=== PATIENT | female | born 1945 | race Caucasian/White ===

== ENCOUNTER 2016-10-10 03:02 | Emergency (ER) | payer BC ==
[~2016-10-10] VITALS: Ht 160 cm; Wt 73.6 kg
[2016-10-10] MEDS ORDERED: 00186-0372-20 (03:11)
[2016-10-10] MEDS ORDERED: VITAMINE200 (03:12)
[2016-10-10] MEDS ORDERED: IPRATROPIUM BROM3 M1 (03:13)
[2016-10-10] MEDS ORDERED: VICODIN 5/300 PO (03:26)
[2016-10-10 03:41] LABS: ADJUSTED CALCIUM 9.3 mg/dL (8.4-10.2); ALANINE AMINOTRANSFERASE 17 U/L (9-52); ALBUMIN 3.6 gm/dL (3.5-5.0); ALKALINE PHOSPHATASE 100 U/L (50-136); ANION GAP 11 mmol/L (7-16); BILIRUBIN,TOTAL 0.8 mg/dL (0.0-1.0); BLOOD UREA NITROGEN 12 mg/dL (7-17); CARBON DIOXIDE 23 mmol/L (22-30); CHLORIDE 105 mmol/L (98-107); CREATININE, serum 0.74 mg/dL (0.52-1.25); GLUCOSE 107 mg/dL (74-106); POTASSIUM 4.2 mmol/L (3.4-5.0); SODIUM 139 mmol/L (137-145); TOTAL PROTEIN 6.3 gm/dL (6.4-8.2)
[2016-10-10 03:43] LABS: BASO # 0.1 (0.0-0.2); BASO % 0.6 % (0.0-2.0); EOS # 0.4 (0.0-0.7); EOS % 4.2 % (0-4.0); GRAN # 5.9 (1.4-6.5); GRAN % 63.2 % (42.2-75.2); HEMATOCRIT 38.1 % (37.0-47.0); HEMOGLOBIN 12.5 g/dl (12.5-16.0); LYMPH # 2.4 (1.2-3.4); LYMPH % 26.1 % (20.0-51.0); MEAN CELL VOLUME 87 fl (80.0-100.0); MEAN CORPUSCULAR HEMOGLOBIN 29 pg (27.0-31.0); MEAN CORPUSCULAR HGB CONC 33 g/dl (33.0-37.0); MEAN PLATELET VOLUME 10.4 fl (7.4-10.4); MONO # 0.5 (0.1-0.6); MONO % 5.6 % (1.7-9.3); PLATELET COUNT 224 K/mm3 (130-400); RED BLOOD COUNT 4.38 M/mm3 (4.10-5.30); REDCELL DISTRIBUTION WIDTH-CV 13.7 % (11.5-14.5); WHITE BLOOD COUNT 9.3 K/mm3 (4.8-10.8)
[2016-10-10 04:01] LABS: TROPONIN-I < 0.012 ng/mL (0.000-0.034)
[2016-10-10 04:06] LABS: THYROXINE (T4)-TOTAL 10.1 ug/dL (5.5-11.0)
[2016-10-10 04:24] LABS: B-TYPE NATRIURETIC PEPTIDE 2810 pg/mL (0-125)
[2016-10-10] MEDS ORDERED: PREDNISONE20 MG PO (04:53)
[2016-10-10] MEDS ORDERED: K-DUR 10 MEQ T10 MEQ PO (04:56)
[2016-10-10] MEDS ORDERED: LASIX 20MG TABL20 MG PO (04:56)
[2016-10-10 05:11] VITALS: BP 111/60; PULSE 95
== END 2016-10-10 05:20 | disposition home or self-care (01) ==
LOC: COL.ER 03:02
PROVIDERS: Emergency Medicine
DX: R00.2 Palpitations (principal); R06.02 Shortness of breath; J44.9 Chronic obstructive pulmonary disease, unspecified; Z86.79 Personal history of other diseases of the circulatory system; Z87.891 Personal history of nicotine dependence; Z98.890 Other specified postprocedural states
CPT/HCPCS: G0463; J7512

== ENCOUNTER 2019-09-28 09:19 | Day surgery (SDC) | payer MEDICARE, OTHER ==
[~2019-09-28] VITALS: Ht 152.4 cm; Wt 71.0 kg
[2019-09-28] VITALS (14 sets, daily range): BP systolic 97–140; BP diastolic 47–78; PULSE 70–86; TEMP 97.9
[~2019-09-28 09:19] MED LIST: 00186-0372-20; ALDACTONE 25MG25 M1 PO; DIOVAN 40MG40 MG PO; ELIQUIS 5MG PO; FOLIC ACID 11 MG/TA1 PO; FOLIC ACID0.4 MG PO; IPRATROPIUM BROM3 M1; K-DUR 10 MEQ T10 MEQ PO; LASIX 20MG TABL20 MG PO; NORCO 325 MG-51 TAB PO; PREDNISONE20 MG PO; PROTONIX20 MG PO; TOPROL XL 25MG25 MG PO; TYLENOL 500MG500 MG PO; VENTOLIN0.09 MG IH; VICODIN 5/300 PO; VITAMIND3 5000 PO; VITAMINE200
--- NOTE | 2019-09-28 10:30 | NUR ---
PT BROUGHT INTO CT AND PLACED INTO POSITION ON TABLE. MONITORING EQUIPMENT PLACED AND IMAGES TAKEN
--- NOTE | 2019-09-28 10:32 | NUR ---
VERSED 0.5 MG AND FENTANYL 25 MCG GIVEN IVSP
--- NOTE | 2019-09-28 10:50 | NUR ---
PROCEDURE COMPLETED. CT SCAN SHOWS NO PNUEMOTHORAX OR BLEEDING.
--- NOTE | 2019-09-28 10:56 | NUR ---
Patient to room 6 per cart from radiology after CT guided lung biopsy. Bandaid to the mid back dry. Denies chest pain or shortness of breath. Remains NPO for right port a catheter placement. Siderails up x2 and call light in reach.
--- NOTE | 2019-09-28 11:01 | NUR ---
REPORT GIVEN TO LYNETTE PITTS. VERSED 0.5 MG AND FENTANYL 25 MCG REPORTED. PT IS ALERT AND ORIOENTED. VOICES NO C/O DISCOMFORT. SITE IS CDI WITH BANDAIDE PRESENT. CALL LIGHT GIVEN TO PT. VSS.
--- NOTE | 2019-09-28 11:11 | NUR ---
Talking on the phone and continues to deny discomfort.
--- NOTE | 2019-09-28 11:41 | NUR ---
Continues talk on her cell phone and offers no complaints.
--- NOTE | 2019-09-28 13:12 | NUR ---
Patient returns to room 6 per cart from surgery accompanied by Luisa OJEDA and Myron ASHLEY and is awake and alert. States that she is hungry and thirsty. Temp 97.2 and room air sats 98%. IV fluids infusing and siderails up x2. Call light in reach.
--- NOTE | 2019-09-28 13:27 | NUR ---
Drinking juice and water. Dressing clean and dry over the right port a catheter site. Area remains soft to touch.
--- NOTE | 2019-09-28 13:42 | NUR ---
Eating pudding and drinking juice and water. Right port a catheter dressing clean and dry.
--- NOTE | 2019-09-28 13:50 | NUR ---
IV discontinued and site is free of redness. Patient dresses self.
--- NOTE | 2019-09-28 13:59 | NUR ---
Given dismissal instructions and voices understanding of these. Provided port a catheter instructions. Instructed to keep the dressing dry for 48 hours. Informed the patient that she may resume all medications except for the Eliquis and to restart it 09/29/2019.
--- NOTE | 2019-09-28 14:05 | NUR ---
Patient dismissed to home driven by friend and taken to the front door per wheelchair by this RN with dismissal instructions in hand.
== END 2019-09-28 14:05 | disposition home or self-care (01) ==
LOC: SDCO 09:19 → EDSTATUS 09:45 → COL.RAD 09:45 → SDCO 14:05
DX: C18.7 Malignant neoplasm of sigmoid colon (principal); C34.31 Malignant neoplasm of lower lobe, right bronchus or lung; I10 Essential (primary) hypertension; I48.20 Chronic atrial fibrillation, unspecified; J44.9 Chronic obstructive pulmonary disease, unspecified; J45.20 Mild intermittent asthma, uncomplicated; J40 Bronchitis, not specified as acute or chronic; K21.9 Gastro-esophageal reflux disease without esophagitis; M06.9 Rheumatoid arthritis, unspecified; M79.7 Fibromyalgia; I42.8 Other cardiomyopathies; Z93.3 Colostomy status; Z95.810 Presence of automatic (implantable) cardiac defibrillator; Z79.01 Long term (current) use of anticoagulants; Z79.899 Other long term (current) drug therapy; Z87.891 Personal history of nicotine dependence; Z88.0 Allergy status to penicillin; Z88.2 Allergy status to sulfonamides; Z88.8 Allergy status to other drugs, medicaments and biological substances
CPT/HCPCS: C1788; J0690; J1644; J2250; J2704; J3010; J7120